=== PATIENT | female | born 1980 | race Caucasian/White ===

== ENCOUNTER 2016-09-04 06:06 | Emergency (ER) | payer SELFPAY | END 2016-09-04 09:18 | disposition home or self-care (01) | LOC: ER 06:06 | DX: R07.89 Other chest pain (principal); M79.602 Pain in left arm; F41.9 Anxiety disorder, unspecified; F17.210 Nicotine dependence, cigarettes, uncomplicated; Z98.51 Tubal ligation status | CPT/HCPCS: 36415; 96374; J2060; Q9967 ==